=== PATIENT | female | born 1960 | race Caucasian/White ===

== ENCOUNTER 2021-12-01 10:17 | Inpatient (IN) | payer BC ==
[~2021-12-01] VITALS: Ht 152.4 cm; Wt 70.3 kg
[2021-12-01 10:17] VITALS: BP_SYST 131
--- NOTE | 2021-12-01 10:23 | NUR ---
Patient to ER bed 5 for evaluation. Side rails up. Report given to Alpesh ALCANTAR.
--- NOTE | 2021-12-01 10:55 | NUR ---
Pt seen at the bedside by ED physician.
--- NOTE | 2021-12-01 11:04 | NUR ---
Pt present to ED with complaint of BLE weakness resulting in a GLF. Pt denies CASTILLO or dizziness. No hematoma or contusion noted on assessment. EKG done. Wll continue to monitor pt.
[2021-12-01 11:05] LABS: BASOPHILS % (AUTO) 0.7 % (0.0-2.0); EOSINOPHILS % (AUTO) 0.4 % (0.0-4.0); HEMATOCRIT 23.3 % (36-48); HEMOGLOBIN 8.1 g/dL (12.0-16.0); LYMPHOCYTES # (AUTO) 1.6 K/uL (1.0-5.5); LYMPHOCYTES % (AUTO) 36.5 % (20.5-51.5); MEAN CORPUSCULAR HEMOGLOBIN 31 pg (27-31); MEAN CORPUSCULAR HGB CONC 35 % (32-36); MEAN CORPUSCULAR VOLUME 89 fL (79.0-98.0); MONOCYTES # (AUTO) 0.4 K/uL (0.0-1.0); MONOCYTES % (AUTO) 9.3 % (1.7-9.3); NEUTROPHILS # (AUTO) 2.3 K/uL (1.8-7.7); NEUTROPHILS % (AUTO) 53.1 % (40.0-70.0); PLATELET COUNT (AUTO) 276 K/uL (130-430); RED BLOOD CELL COUNT(AUTO) 2.62 MIL/uL (4.2-6.2); RED CELL DISTRIBUTION WIDTH 13.5 % (9.0-15.0); WHITE BLOOD COUNT (AUTO) 4.4 K/uL (4.8-10.8)
[2021-12-01 11:19] LABS: ANION GAP 6 (5-15); CALCIUM 7.3 mg/dL (8.4-11.0); CHLORIDE 95 mmol/L (98-107); CREATININE 0.89 mg/dL (0.55-1.30); GLUCOSE 84 mg/dL (70-99); SODIUM SERUM 132 mmol/L (136-145); UREA NITROGEN, BLOOD 9 mg/dL (8-21)
[2021-12-01 11:33] LABS: ALANINE AMINOTRANSFERASE 50 U/L (12-78); ALBUMIN 2.6 g/dL (3.4-4.8); ASPARTATE AMINOTRANSFERASE 68 U/L (10-37); THYROID STIMULATING HORMONE 10.89 uIu/mL (0.36-3.74); TOTAL BILIRUBIN 1.3 mg/dL (0.0-1.0)
[2021-12-01 11:41] LABS: GFR AFRICAN AMERICAN 83 mL/min (>90); POTASSIUM 2.7 mmol/L (3.5-5.1)
--- NOTE | 2021-12-01 11:43 | NUR ---
In and Out straight catherization completed per ED physician orders. Sterile procedure maintained. Pt tolerated procedure appropriately. Will continue to monitor pt
[2021-12-01] MEDS ORDERED: KCL 40 mEq in 100 mL (PREMIX) 100 ML IV ONE (11:45)
[2021-12-01] MEDS ORDERED: NACL 0.9% 500 ML IV ONE (11:45)
[2021-12-01 11:51] LABS: BILIRUBIN,URINE 1+ (NEGATIVE); BLOOD, URINE NEGATIVE (NEGATIVE); CLARITY/URINE CLEAR (CLEAR); COLOR,URINE YELLOW (YELLOW); GLUCOSE,URINE NEGATIVE (NEGATIVE); KETONES,URINE TRACE (NEGATIVE); LEUKOCYTE ESTERASE ,URINE NEGATIVE (NEGATIVE); NITRITE, URINE NEGATIVE (NEGATIVE); PROTEIN URINE NEGATIVE (NEGATIVE)
[2021-12-01] MEDS ORDERED: THIAMINE HCL 100 MG in NS 50 ML IV ONE (12:00)
[2021-12-01] MEDS ORDERED: KCL 20 mEq in 100 mL (PREMIX) 100 ML IV ONE (12:00)
[2021-12-01] MEDS ORDERED: FOLIC ACID 5 MG/ML VIAL IV ONE (12:00)
[2021-12-01] MEDS ORDERED: THIAMINE HCL 100 MG/ML VIAL ONE (12:48)
--- NOTE | 2021-12-01 15:12 | NUR ---
Report called to Charlotte RN on floor. pt transported in no acute distress AOx4 GCS 15 with IV infusing K+ and 500 of NS
--- NOTE | 2021-12-01 15:14 | NUR ---
Pt transported via stretcher by EDT accompanied by attending ED RN
--- NOTE | 2021-12-01 15:23 | NUR ---
CONSULTATION PAGED/CALLED Reason for Consultation: [] ANEMIA Person Who was Notified: [] VENUS Consulting Physician: [] DR LAINEZ Wireless Retail Manager Specialty: [] GI Ordering Physician: [] DR PARIS
--- NOTE | 2021-12-01 15:29 | NUR ---
Pt transported on monitor in no acute distress
[2021-12-01 15:46] VITALS: BP_SYST 119
[2021-12-01] MEDS ORDERED: AMLO5TAB4 PO (19:35)
[2021-12-01] MEDS ORDERED: LIP40 PO (19:35)
[2021-12-01] MEDS ORDERED: LEVO125T8 PO (19:35)
[2021-12-01] MEDS ORDERED: CLOP75TA32 PO (19:36)
[2021-12-01] MEDS ORDERED: LISI-209 PO (19:37)
[2021-12-01] MEDS ORDERED: QUET50TA PO (19:38)
[2021-12-01] MEDS ORDERED: HYDR25TA4 PO (19:39)
[2021-12-01 19:46] VITALS: BP_SYST 130
[2021-12-02 00:47] VITALS: BP_SYST 100
--- NOTE | 2021-12-02 00:49 | NUR ---
This is an admission note for a 61 year old female patient under the care of Doctor MD Jerald, for anemia and hypokalemia. She lives at home with her family and has intake of 1 bottle of wine prior to admission per spouse report. Patient has family history of stroke in both her father and mother. Patient CT shows _, and a neurology consultation for Doctor Valera was called by ER team. The patient has a hemoglobin value of 8.1 and a gastroenterology consultation for Doctor John was called as well. Potassium of 2.7 was replaced with 80 meq k-rider. Patient is awake, alert and ambulatory with a steady gait. Andrews Bee RN
--- NOTE | 2021-12-02 08:00 | NUR ---
AM NOTES S/P FALL AT HOME, INSTRUCTED TO CALL FOR HELP, BED ON ALARM. SAFETY PRECAUTION PROVIDED. HAD BREAKFAST, AWAITING FOR MF TO SEE PATIENT. NOTIFIED [facility] TO RECONCILE MEDS, RECONCILED PT MEDS.
[2021-12-02] MEDS ORDERED: chlordiazePOXIDE HCL 25 MG CAPSULE PO PRN (08:30)
[2021-12-02 08:32] VITALS: BP_SYST 125
[2021-12-02 08:55] LABS: BASOPHILS % (AUTO) 0.5 % (0.0-2.0); EOSINOPHILS % (AUTO) 0.8 % (0.0-4.0); HEMATOCRIT 24.7 % (36-48); HEMOGLOBIN 8.5 g/dL (12.0-16.0); LYMPHOCYTES # (AUTO) 1.6 K/uL (1.0-5.5); LYMPHOCYTES % (AUTO) 32.6 % (20.5-51.5); MEAN CORPUSCULAR HEMOGLOBIN 31 pg (27-31); MEAN CORPUSCULAR HGB CONC 35 % (32-36); MEAN CORPUSCULAR VOLUME 89 fL (79.0-98.0); MONOCYTES # (AUTO) 0.4 K/uL (0.0-1.0); MONOCYTES % (AUTO) 7.4 % (1.7-9.3); NEUTROPHILS # (AUTO) 2.9 K/uL (1.8-7.7); NEUTROPHILS % (AUTO) 58.7 % (40.0-70.0); PLATELET COUNT (AUTO) 260 K/uL (130-430); RED BLOOD CELL COUNT(AUTO) 2.76 MIL/uL (4.2-6.2); RED CELL DISTRIBUTION WIDTH 13.5 % (9.0-15.0)
[2021-12-02] MEDS ORDERED: lisinopriL 5 MG TABLET PO SCH (09:00)
[2021-12-02] MEDS ORDERED: HYDROCHLOROTHIAZIDE 25 MG TABLET (HCTZ) PO SCH (09:00)
[2021-12-02] MEDS ORDERED: amLODIPine BESYLATE 5 MG TABLET PO SCH (09:00)
[2021-12-02] MEDS ORDERED: QUEtiapine FUMARATE 25 MG TABLET PO SCH (09:00)
[2021-12-02 09:18] LABS: CALCIUM 7.5 mg/dL (8.4-11.0); CREATININE 0.9 mg/dL (0.55-1.30)
[2021-12-02 09:59] LABS: POTASSIUM 2.2 mmol/L (3.5-5.1)
--- NOTE | 2021-12-02 10:00 | NUR ---
RUDY López NOTIFIED MD JELLY López- WITH NEW ORDER. TOOK HER MEDS, ENCOURAGED TO CALL LIGHT FOR HELP.
[2021-12-02] MEDS: ATORVASTATIN 20 MG TABLET PO SCH (10:52)
[2021-12-02] MEDS: LEVOTHYROXINE SODIUM 0.125 MG TABLET PO SCH (10:53)
[2021-12-02] MEDS: CLOPIDOGREL BISULFATE 75 MG TABLET PO SCH (10:54)
[2021-12-02] MEDS ORDERED: POTASSIUM CHLORIDE 20 MEQ TAB.PRT.SR PO ONE (11:15)
--- NOTE | 2021-12-02 11:19 | NUR ---
HIGH ALERT NOTE: Called Dr. PARIS back at [phone] identified within the medical roster to verify physician authenticity.
[2021-12-02 12:14] VITALS: BP_SYST 115
[2021-12-02] MEDS ORDERED: POTASSIUM CHLORIDE 40 MEQ, LIDOCAINE JECT 2% PF 100 MG 50 MG in NS 250 ML IV ONE (12:30)
--- NOTE | 2021-12-02 12:30 | NUR ---
ALMOST PASSED OUT IN THE BATHROOM ASSISTED BY STUDENT NURSE TO THE BATHROOM, ALMOST FAINTED WHILE SITING IN THE TOILET. SITTED IN THE W/C, BACK TO BED, IN THE ROOM. PATIENT IS PALE LOOKING, BP 79/50, HR 72. O2 SAT 96%, PLACED ON 2L/NC.
--- NOTE | 2021-12-02 13:00 | NUR ---
NOTIFID MD RE LOW BP NOTIFED MD RE LOW BP, ORDERED TO GIVE ALBUMIN.
[2021-12-02] MEDS ORDERED: ALBUMIN HUMAN 25% 200 ML IV ONE (14:45)
--- NOTE | 2021-12-02 14:49 | NUR ---
CONSULTATION PAGED/CALLED Reason for Consultation: [] SYNCOPE Person Who was Notified: [] DONALD Consulting Physician: [] DR JAY Strategic Planning Director Specialty: [] CARDIO Ordering Physician: [] DR PARIS
--- NOTE | 2021-12-02 17:00 | NUR ---
BP BP WENT UP TO 100/70 AFTER 200CC OF 25% ALBUMIN GIVEN. PATIENT ASYMPTOMATIC.
[2021-12-02] MEDS ORDERED: D5/0.45 NS 1,000 ML IV SCH (18:30)
--- NOTE | 2021-12-02 19:00 | NUR ---
NOTES TAMMY BETANCOURT THAT BP WAS STABLE 107/60, PATIENT URINATED IN HER BED, CHANGED, GOOD IMRE CARE PROVIDED. SCD APPLIED, NEW IV FLUIDS STARTED. K-RIDER STILL RUNNING AND TO CONSUME.
[2021-12-02 20:01] VITALS: BP_SYST 85
--- NOTE | 2021-12-02 22:53 | NUR ---
Left message with answering service patient request for stool softener and sleeping medication. Andrews Bee RN
[2021-12-02 23:54] VITALS: BP_SYST 101
[2021-12-03 06:48] LABS: BASOPHILS % (AUTO) 0.3 % (0.0-2.0); EOSINOPHILS % (AUTO) 0.9 % (0.0-4.0); LYMPHOCYTES # (AUTO) 1.2 K/uL (1.0-5.5); LYMPHOCYTES % (AUTO) 35.2 % (20.5-51.5); MEAN CORPUSCULAR HEMOGLOBIN 31 pg (27-31); MEAN CORPUSCULAR HGB CONC 35 % (32-36); MEAN CORPUSCULAR VOLUME 90 fL (79.0-98.0); MONOCYTES # (AUTO) 0.3 K/uL (0.0-1.0); MONOCYTES % (AUTO) 8.3 % (1.7-9.3); NEUTROPHILS # (AUTO) 1.9 K/uL (1.8-7.7); NEUTROPHILS % (AUTO) 55.3 % (40.0-70.0); PLATELET COUNT (AUTO) 194 K/uL (130-430); RED BLOOD CELL COUNT(AUTO) 2.13 MIL/uL (4.2-6.2); RED CELL DISTRIBUTION WIDTH 13.5 % (9.0-15.0); WHITE BLOOD COUNT (AUTO) 3.5 K/uL (4.8-10.8)
[2021-12-03 07:28] LABS: CALCIUM 7.5 mg/dL (8.4-11.0); CREATININE 0.71 mg/dL (0.55-1.30)
[2021-12-03 07:40] LABS: HEMATOCRIT 19.1 % (36-48); HEMOGLOBIN 6.6 g/dL (12.0-16.0)
[2021-12-03 07:44] LABS: POTASSIUM 2.1 mmol/L (3.5-5.1)
[2021-12-03 07:50] VITALS: BP_SYST 99
--- NOTE | 2021-12-03 08:00 | NUR ---
AM NOTES PRESENCE OF SKIN TEAR ON RIGHT UPPER ARM DUE TO PRESENCE OF ECHYMOSIS ON MULTPLE PARTS OF THE BODY. WITH CRITICAL LAB RELAYED TO DR PARIS, TO REPLACED Rene RIDER . MAG RIDER, AND BLOOD TRANSFUSION. ORDERED FOR MIDDLINE DUE TO PATIENT HAS POOR VENOUS ACCESS. KEPT ON BED REST,BP STILL ON 99/60, PALE LOOKING BUT ALERT AND ORIENTED.
--- NOTE | 2021-12-03 08:10 | NUR ---
HIGH ALERT NOTE: Called Dr. PARIS back at [phone] identified within the medical roster to verify physician authenticity.
[2021-12-03] MEDS ORDERED: MAGNESIUM SULFATE 50 ML IV ONE (08:30)
[2021-12-03] MEDS ORDERED: POTASSIUM CHLORIDE 20 MEQ/PKT PACKET PO ONE (08:30)
[2021-12-03 09:06] LABS: INR 1.2 (0.8-1.2); PROTHROMBIN TIME 12.1 SECS (9.5-12.5)
[2021-12-03] MEDS: LEVOTHYROXINE SODIUM 0.125 MG TABLET PO SCH (09:10)
[2021-12-03] MEDS: CLOPIDOGREL BISULFATE 75 MG TABLET PO SCH (09:10)
[2021-12-03] MEDS: ATORVASTATIN 20 MG TABLET PO SCH (09:11)
[2021-12-03 09:14] LABS: TOTAL IRON BIND. CAPACITY 83 ug/dL (250-450)
[2021-12-03] MEDS ORDERED: POTASSIUM CHLORIDE 40 MEQ, LIDOCAINE JECT 2% PF 100 MG 50 MG in NS 250 ML IV ONE (10:00)
--- NOTE | 2021-12-03 10:00 | NUR ---
SEEN BY DR JAY AMMONIA OPERATOR CAME TO EVALUATE PATIENT,
[2021-12-03] MEDS ORDERED: THIAMINE HCL 100 MG TABLET PO ONE (10:30)
[2021-12-03 11:28] VITALS: BP_SYST 104
--- NOTE | 2021-12-03 12:00 | NUR ---
MIDDLINE MIDDLINE INSERTED BY PICCLINE NURSE, TO START K RIDER, MAG POWELLER, AWAITING FOR BLOOD TRANSFUSION.
[2021-12-03] MEDS: KCL 20 mEq in D5/0.45NS 1000mL 1,000 ML IV SCH (12:36)
--- NOTE | 2021-12-03 15:20 | NUR ---
BT INITIATION: Consent signed per agreeing to administration of blood. Blood has been type and crossmatched. Blood sent from blood bank. Information on unit of blood checked against patient wristband at bedside by two nurses. All information matches. Patient or responsible constitution party informed of potential complications associated with blood transfusion. Informed of possible transfusion reaction symptoms. Aware of need to notify nurse at once of itching, shortness of breath, flushing, feeling of impending doom, or other symptoms not previously present. Vital signs taken within 5 minutes prior to initiation of transfusion. RN will remain with patient for first 15 minutes of transfusion at which time vital signs will be re-assessed.
[2021-12-03 15:25] VITALS: BP_SYST 91
--- NOTE | 2021-12-03 15:45 | NUR ---
BLOOD TRANSFUSION NO SIGN OF REACTIONS POST MINUTES OF BLOOD TRANSFUSION.
--- NOTE | 2021-12-03 18:35 | NUR ---
BLOOD TRANSFUSION DR GONGORA CAME AND MADE AWARE THAT PATIENT H/H DOWN TO 6.6, DR GONGORA ADVISED TO RE -CHECK THE H/H THIS AM BEFORE TRANSFUSING BLOOD SINCE THERE IS NO BLEEDING NOTED. H/H WILL BE DRAWN POST 1 UNT PRBC.
[2021-12-03 20:11] LABS: HEMATOCRIT 25.1 % (36-48); HEMOGLOBIN 8.5 g/dL (12.0-16.0)
[2021-12-03] MEDS: POTASSIUM CHLORIDE 20 MEQ TAB.PRT.SR PO SCH (20:23)
[2021-12-03 20:27] VITALS: BP_SYST 110
[2021-12-03] MEDS ORDERED: TEMAZEPAM 7.5 MG CAPSULE PO ONE (21:45)
[2021-12-04] VITALS: BP_SYST 84
[2021-12-04] MEDS: KCL 20 mEq in D5/0.45NS 1000mL 1,000 ML IV SCH (05:52)
[2021-12-04 06:50] LABS: BASOPHILS % (AUTO) 0.7 % (0.0-2.0); EOSINOPHILS # (AUTO) 0.1 K/uL (0.0-0.4); EOSINOPHILS % (AUTO) 1.7 % (0.0-4.0); HEMATOCRIT 30.5 % (36-48); HEMOGLOBIN 10.1 g/dL (12.0-16.0); LYMPHOCYTES # (AUTO) 2.4 K/uL (1.0-5.5); MEAN CORPUSCULAR HEMOGLOBIN 30 pg (27-31); MEAN CORPUSCULAR HGB CONC 33 % (32-36); MEAN CORPUSCULAR VOLUME 89 fL (79.0-98.0); MONOCYTES # (AUTO) 0.4 K/uL (0.0-1.0); MONOCYTES % (AUTO) 6.2 % (1.7-9.3); NEUTROPHILS # (AUTO) 2.8 K/uL (1.8-7.7); NEUTROPHILS % (AUTO) 49.4 % (40.0-70.0); PLATELET COUNT (AUTO) 230 K/uL (130-430); RED BLOOD CELL COUNT(AUTO) 3.41 MIL/uL (4.2-6.2); RED CELL DISTRIBUTION WIDTH 16.4 % (9.0-15.0); WHITE BLOOD COUNT (AUTO) 5.6 K/uL (4.8-10.8)
[2021-12-04 07:34] LABS: ALBUMIN 2.7 g/dL (3.4-4.8); CREATININE 0.81 mg/dL (0.55-1.30); POTASSIUM 3.6 mmol/L (3.5-5.1); TOTAL BILIRUBIN 2.2 mg/dL (0.0-1.0)
--- NOTE | 2021-12-04 08:00 | NUR ---
INITIAL NOTES PATIENT IS AWAKE, ALERT, AND ORIENTED. DENIES ANY PAIN/ DISCOMFORT. NO SOB. PATIENT DENIES ANY DIZZINESS. PATIENT'S HOB IS ELEVATED AND SHE IS EATING BREAKFAST. PATIENT AWARE TO CALL FOR ASSISTANCE WHEN NEEDED. BED AT LOWEST POSITION, BED ALARM ON, SIDE RAILS UP, AND BED LOCKED. CALL LIGHT WITHIN REACH.
[2021-12-04 08:01] VITALS: BP_SYST 120
[2021-12-04] MEDS: FOLIC ACID 1 MG TABLET PO SCH (08:21)
[2021-12-04] MEDS: ATORVASTATIN 20 MG TABLET PO SCH (08:21)
[2021-12-04] MEDS: LEVOTHYROXINE SODIUM 0.125 MG TABLET PO SCH (08:22)
[2021-12-04] MEDS: THIAMINE HCL 100 MG TABLET PO SCH (08:22)
[2021-12-04] MEDS: POTASSIUM CHLORIDE 20 MEQ TAB.PRT.SR PO SCH ×2 (08:22→20:58)
[2021-12-04] MEDS: SPIRONOLACTONE 25 MG TABLET (ALDACTONE) PO SCH (09:08)
[2021-12-04 11:24] VITALS: BP_SYST 127
--- NOTE | 2021-12-04 12:00 | NUR ---
NOTES PATIENT DENIES ANY PAIN OR DISCOMFORT. NO SOB NOTED. PATIENT IS WITH PHYSICAL THERAPY.
[2021-12-04 15:24] VITALS: BP_SYST 117
--- NOTE | 2021-12-04 16:00 | NUR ---
Notes Patient getting anxious/ upset because she believes she is getting discharged today. Explained to pt and that there are no discharge orders yet, just d/c planning. Patient requested Librium, gave medication. Patient complains of no pain at the moment. No SOB, breathing even and unlabored. Will continue to monitor pt's anxiety. Family at bedside. Pt aware to call for assistance if needed. Safety precautions in place and call light within reach.
--- NOTE | 2021-12-04 18:31 | NUR ---
Closing Notes Patient is eating dinner, appears to more at ease. Denies any pain or discomfort. Safety precautions in place and call light within reach.
[2021-12-04 20:00] VITALS: BP_SYST 114
[2021-12-05 00:06] VITALS: BP_SYST 115
[2021-12-05] MEDS: SPIRONOLACTONE 25 MG TABLET (ALDACTONE) PO SCH ×2 (00:30→09:57)
[2021-12-05] MEDS: KCL 20 mEq in D5/0.45NS 1000mL 1,000 ML IV SCH (01:30)
--- NOTE | 2021-12-05 04:26 | NUR ---
Pt is resting quietly. Respirations even et unlabored. She is calm and compliant with nursing care initiated. Pt has maintained continence of bladder throughout the shift. Will continue to observe.
[2021-12-05 04:50] VITALS: BP_SYST 144
[2021-12-05 08:25] VITALS: BP_SYST 121
[2021-12-05 08:55] LABS: CALCIUM 8.2 mg/dL (8.4-11.0); CREATININE 0.86 mg/dL (0.55-1.30); POTASSIUM 4.6 mmol/L (3.5-5.1); TOTAL BILIRUBIN 1.2 mg/dL (0.0-1.0)
[2021-12-05 09:08] LABS: BASOPHILS % (AUTO) 0.4 % (0.0-2.0); EOSINOPHILS # (AUTO) 0.1 K/uL (0.0-0.4); EOSINOPHILS % (AUTO) 1.2 % (0.0-4.0); HEMATOCRIT 31.7 % (36-48); HEMOGLOBIN 10.5 g/dL (12.0-16.0); LYMPHOCYTES % (AUTO) 33.8 % (20.5-51.5); MEAN CORPUSCULAR HEMOGLOBIN 30 pg (27-31); MEAN CORPUSCULAR HGB CONC 33 % (32-36); MEAN CORPUSCULAR VOLUME 90 fL (79.0-98.0); MONOCYTES # (AUTO) 0.4 K/uL (0.0-1.0); MONOCYTES % (AUTO) 5.9 % (1.7-9.3); NEUTROPHILS # (AUTO) 3.5 K/uL (1.8-7.7); NEUTROPHILS % (AUTO) 58.7 % (40.0-70.0); PLATELET COUNT (AUTO) 233 K/uL (130-430); RED BLOOD CELL COUNT(AUTO) 3.53 MIL/uL (4.2-6.2); RED CELL DISTRIBUTION WIDTH 16.5 % (9.0-15.0)
[2021-12-05] MEDS: FOLIC ACID 1 MG TABLET PO SCH (09:57)
[2021-12-05] MEDS: ATORVASTATIN 20 MG TABLET PO SCH (09:58)
[2021-12-05] MEDS: LEVOTHYROXINE SODIUM 0.125 MG TABLET PO SCH (09:58)
[2021-12-05] MEDS: THIAMINE HCL 100 MG TABLET PO SCH (09:58)
[2021-12-05 11:25] VITALS: BP_SYST 119
--- NOTE | 2021-12-05 12:35 | NUR ---
SKIN TEAR Pt very anxious to bed discharged home, attempted to change the dressing on the patient's skin tear on her right arm-pt refused and stated 'no need, I will put a band aid on it when I get home.
[2021-12-05 12:42] VITALS: BP_SYST 119
--- NOTE | 2021-12-05 12:45 | NUR ---
Discharge Planning: DCP faxed pt referral to [facility] [phone] DCP to follow up. Addendum: 12/05/21 at 1447 by Danna Williamson DP DCP followed with [facility] [phone] FWW will be delivered to patient home.
--- NOTE | 2021-12-05 14:40 | NUR ---
PATIENT DISCHARGED HOME Patient given medication reconciliation form and D/C instructions. Exit Care on Anemia and Hypotension explained and provided. Patient and patient's verbalized their understanding. MD discussed with patient the results and treatment provided. Ambulatory with steady gait for discharge to home, FWW arranged through case management to be delivered to home today for safety. Patient in stable condition, ID band removed. IV catheter removed, intact and dressing applied, no active bleeding. Patient educated on pain management. All belongings sent with patient. Patient left the floor via wheelchair to a private vehicle in no distress.
[2021-12-05] MEDS ORDERED: POTASSIUM CHLORIDE 20 MEQ TAB.PRT.SR PO SCH (21:00)
== END 2021-12-05 14:42 | disposition home or self-care (01) | DRG 556 ==
LOC: SED 10:17 → STU 13:54
PROVIDERS: ADMIT Internal Medicine; ATTEND Internal Medicine
PROC: 30233N1 Transfusion of Nonautologous Red Blood Cells into Peripheral Vein, Percutaneous Approach (ICD-10-PCS; principal; 2021-12-03)
PROC: 05HY33Z Insertion of Infusion Device into Upper Vein, Percutaneous Approach (ICD-10-PCS; 2021-12-03)
PROC: B54NZZA Ultrasonography of Left Upper Extremity Veins, Guidance (ICD-10-PCS; 2021-12-03)
DX: M62.81 Muscle weakness (generalized) (principal); F10.27 Alcohol dependence with alcohol-induced persisting dementia; E87.1 Hypo-osmolality and hyponatremia; E46 Unspecified protein-calorie malnutrition; D63.8 Anemia in other chronic diseases classified elsewhere; E03.9 Hypothyroidism, unspecified; I10 Essential (primary) hypertension; Z20.822 Contact with and (suspected) exposure to COVID-19; R55 Syncope and collapse; Y90.9 Presence of alcohol in blood, level not specified; K76.89 Other specified diseases of liver; E78.5 Hyperlipidemia, unspecified; E87.6 Hypokalemia; Z90.13 Acquired absence of bilateral breasts and nipples; Z85.3 Personal history of malignant neoplasm of breast; Z98.84 Bariatric surgery status; Z79.899 Other long term (current) drug therapy; Z79.02 Long term (current) use of antithrombotics/antiplatelets; Z68.30 Body mass index [BMI] 30.0-30.9, adult
CPT/HCPCS: 36415; 36430; 70450-TC; 71045; 76376; 80048; 80053; 80061; 81003; 82607; 82728; 83540; 83550; 83690; 83735; 83880; 84443; 84484; 85018; 85025; 85610-TC; 86886; 86900; 86901; 86920; 93005; 93306; 96361; 96365; 96366; 96368; 97116-GP; 97530-GP; 99285; G0378; J3411; J3475; J3480; J3490; J7040; J7050; P9021